=== PATIENT | male | born 1945 | race Caucasian/White ===

== ENCOUNTER → 2019-04-20 08:10 | Outpatient (BNVA) | payer MEDICARE, OTHER, SELFPAY | PROVIDERS: Family Provider Electrodiagnostic Medicine; PCP Internal Medicine; Visit Provider Urology | DX: R31.0 Gross hematuria (principal); N13.8 Other obstructive and reflux uropathy; N40.1 Benign prostatic hyperplasia with lower urinary tract symptoms; N41.1 Chronic prostatitis | CPT/HCPCS: 81001; 87086 ==

== ENCOUNTER → 2019-04-21 12:01 | Outpatient (BNVA) | payer MEDICARE, OTHER, SELFPAY | PROVIDERS: Family Provider Electrodiagnostic Medicine; PCP Internal Medicine; Visit Provider Urology | DX: R31.0 Gross hematuria (principal) | CPT/HCPCS: 88112 ==

== ENCOUNTER 2019-05-02 23:05 | Inpatient (IN) | payer MEDICARE, OTHER, SELFPAY ==
[2019-05-02 23:12] VITALS: BP 174/128; PULSE 61; RESP 16; TEMP 36.5; O2SAT 94
--- NOTE | 2019-05-02 23:20 | ED_ITS ---
Entered by Zeenat Rizzo, acting as scribe for Darell Patel DO May 02, 2019 23:05 HPI - Chest Pain General: Chief Complaint: Chest Pain Stated Complaint: throat and chest pain Time Seen by Provider: 05/02/19 23:14 Source: patient and family Mode of arrival: ambulatory History of Present Illness: HPI narrative: 73 y/o male presents to the ED with complaint of chest heaviness today. Pt states the pain radiates into his shoulder blades. He also reports some difficulty swallowing/throat discomfort. He has had some increased bloating. He had a similar episode yesterday. complaint: chest heaviness Onset (ago): day(s) Timing of current episode: episodic and still present Prior episodes: Yes Pain radiation: back Severity: mild Relieving factors: nothing Associated symptoms: Reports abdominal pain (bloating); Deny dyspnea, fever(s), nausea, palpitations or vomiting Review of Systems Const: Denies: fever or chills Eyes: Denies: change in vision or blurry vision ENMT: Denies: swelling of lips/tongue, bleeding gums, dental pain, Change in hearing, nose bleeds, post nasal drip or facial/sinus pain Card: Reports: chest pain; Denies: palpitations, irregular heart rhythm, edema or swelling of feet/ankles Resp: Denies: shortness of breath, productive cough, non-productive cough or wheezing GI: Reports: abdominal pain (bloating); Denies: nausea, vomiting, rectal pain, blood in stool or black tarry stool : Denies: difficulty urinating, painful urination, urinary frequency, urinary urgency or blood in urine Musc: Denies: neck pain, redness or joint warmth Skin/Breast: Denies: rash, itching or redness Neuro: Denies: headache, dizziness, vertigo, confusion or seizure-like activity Psych: Denies: anxiety, visual hallucinations or auditory hallucinations PFSH ED PFSH: Statuses (acute, chronic, etc) shown below reflect problem list status as previously entered and may not be historically accurate Medical History (Updated 05/03/19 @ 03:58 by Nori Park MD) BPH w urinary obs/LUTS (Acute) Chronic prostatitis (Acute) History of breast cancer (Acute) History of hiatal hernia (Acute) surgery Unstable angina (Acute) Surgical History History of back surgery (Acute) Status post bilateral inguinal hernia repair (Acute) Social History (Updated 05/03/19 @ 04:02 by Nori Park MD) Smoking and tobacco status: never smoked Alcohol intake: never Adopted: No Caregiver/support person: No Lives independently: No Household members: spouse Marital status: Current occupational status: retired 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 Physical Exam Const: GENERAL APPEARANCE: well developed ORIENTATION/CONSCIOUSNESS: Yes oriented to person, Yes oriented to place and Yes oriented to time HENMT: COMMON NORMALS: normocephalic, external ears normal and external nose normal HEAD & SCALP: normocephalic FACE & SINUS: normal facial exam NOS E: external nose normal and no nasal discharge EXTERNAL EAR: Yes external ears normal Eye: COMMON NORMALS: PERRL, EOMs intact bilaterally and conjunctivae normal EYELID: eyelids normal CONJUNCTIVA: Yes conjunctivae normal PUPIL: Yes PERRL Neck/C-Spine: COMMON NORMALS: full ROM GENERAL: No tracheal deviation Chest: COMMONS NORMALS: inspection of chest normal CHEST: No tenderness Resp: COMMON NORMALS: clear to auscultation bilaterally EFFORT & INSPECTION: No tachypneic, No respiratory distress, No retractions, No uses accessory muscles and No tracheal deviation AUSCULTATION: clear to auscultation bilaterally, no rhonchi, no wheezes and lung sounds not diminished Cardio: COMMON NORMALS: regular rate and regular rhythm RATE: regular rate RHYTHM: regular rhythm HEART SOUNDS: no murmurs PERIPHERAL PULSES: radial pulses present GI: COMMON NORMALS: soft to palpation INSPECTION: Yes abdominal distension AUSCULTATION: No hyperactive bowel sounds and No hypoactive bowel sounds PALPATION: Yes soft, No guarding and No rigid PERCUSSION: no dullness to percussion and no tympanic to percussion : COMMON NORMALS: Yes no CVA tenderness BLADDER/KIDNEY EXAM: Yes no CVA tenderness Back/Pelvis: COMMON NORMALS: no CVA tenderness Extremity: GENERAL: Yes edema (1+ bilaterally) Neuro: SENSORIUM/ORIENTATION: Yes oriented to person, Yes oriented to place and Yes oriented to time Psych: COMMON NORMALS: mental status grossly normal Skin: COMMON NORMALS: no rashes or lesions noted GENERAL SKIN EXAM: no rashes or lesions noted Course ED course: 73-year-old male with no prior coronary disease history. He presents with chest pain that radiates into his back and neck. He is hypertensive. Improvement in pain with nitroglycerin transiently, but the pain returned. His hypertension also returned. Nitropaste was placed on his chest, again with some improvement. His cardiac enzymes are negative x2 sets 2 hours apart. His EKGs do not show acute ST change, but they do show intraventricular conduction delay, with bradycardia. His chest x-ray is not remarkable. With continued pain, controlled with nitroglycerin, he will be observed, hopefully for stress later today. Spoke with hospitalist who agrees. Consultations: Consultation #1: britton Vital Signs: Vital signs: Vital Signs Temperature 97.7 F 05/02/19 23:12 Pulse Rate 85 05/03/19 03:27 Respiratory Rate 18 05/03/19 03:27 Blood Pressure 148/92 05/03/19 03:27 Pulse Oximetry 98 05/03/19 03:27 MDM - Chest Pain Lab Data: Labs: Lab Results 05/02/19 05/02/19 05/02/19 Range/Units 23:22 23:22 23:22 WBC 6.3 (4.0-10.0) 10^3/ uL RBC 5.02 (4.1-5.3) 10^6/u L Hgb 13.8 (11.7-16.6) g/dL Hct 42.8 (42.0-52.0) % MCV 85.3 (80-94) fL MCH 27.5 L (28.0-34.0) pg MCHC 32.2 (30.0-36.0) g/dL RDW 14.4 (12.1-15.1) % Plt Count 161 (130-400) 10^3/c mm MPV 11.7 H (7.4-10.4) fL Neut % (Auto) 55.1 % Lymph % (Auto) 31.3 % Hawkins % (Auto) 8.3 % Eos % (Auto) 4.5 % Baso % (Auto) 0.5 % Neut # (Auto) 3.5 (1.8-7.7) 10^3/u L Lymph # (Auto) 2.0 (0.8-4.8) 10^3/u L Hawkins # (Auto) 0.5 (0.2-0.9) 10^3/u L Eos # (Auto) 0.3 (0.0-0.8) 10^3/u L Baso # (Auto) 0.0 (0.0-0.1) 10^3/u L Nucleated RBC % (a uto) 0 % Nucleated RBCs # 0.0 /100WBC PT 13.50 H (10.5-13.3) SECO NDS INR 1.00 (0.8-1.2) APTT 32.6 (23.9-36.7) SECO NDS Sodium 137 (136-145) mmol/L Potassium 3.5 (3.5-5.1) mmol/L Chloride 99 (98-107) mmol/L Carbon Dioxide 25 (22-29) mmol/L Anion Gap 16.5 (5-19) BUN 17 (8-23) mg/dL Creatinine 1.6 H (0.7-1.2) mg/dL Glucose 110 H (74-106) mg/dL Calcium 9.8 (8.5-10.5) mg/dL Total Bilirubin 0.6 (0.15-1.2) mg/dL AST 19 (0-40) U/L ALT 25 (0-41) U/L Alkaline Phosphata se 65 (40-130) IU/L Creatine Kinase 128 (39-308) U/L Troponin T Baselin e (0-15) ng/mL Troponin T 120 Min [place] (0-15) ng/mL Delta Troponin T (0-10) ABS# NT-Pro-B Natriuret Pep 294 H (0-125) pg/mL Total Protein 7.3 (6.6-8.7) g/dL Albumin 4.5 (3.5-5.2) g/dL Globulin 2.8 (1.3-4.6) g/dL 05/02/19 05/03/19 Range/Units 23:22 01:41 WBC (4.0-10.0) 10^3/ uL RBC (4.1-5.3) 10^6/u L Hgb (11.7-16.6) g/dL Hct (42.0-52.0) % MCV (80-94) fL MCH (28.0-34.0) pg MCHC (30.0-36.0) g/dL RDW (12.1-15.1) % Plt Count (130-400) 10^3/c mm MPV (7.4-10.4) fL Neut % (Auto) % Lymph % (Auto) % Hawkins % (Auto) % Eos % (Auto) % Baso % (Auto) % Neut # (Auto) (1.8-7.7) 10^3/u L Lymph # (Auto) (0.8-4.8) 10^3/u L Hawkins # (Auto) (0.2-0.9) 10^3/u L Eos # (Auto) (0.0-0.8) 10^3/u L Baso # (Auto) (0.0-0.1) 10^3/u L Nucleated RBC % (a uto) % Nucleated RBCs # /100WBC PT (10.5-13.3) SECO NDS INR (0.8-1.2) APTT (23.9-36.7) SECO NDS Sodium (136-145) mmol/L Potassium (3.5-5.1) mmol/L Chloride (98-107) mmol/L Carbon Dioxide (22-29) mmol/L Anion Gap (5-19) BUN (8-23) mg/dL Creatinine (0.7-1.2) mg/dL Glucose (74-106) mg/dL Calcium (8.5-10.5) mg/dL Total Bilirubin (0.15-1.2) mg/dL AST (0-40) U/L ALT (0-41) U/L Alkaline Phosphata se (40-130) IU/L Creatine Kinase (39-308) U/L Troponin T Baselin e 28 H (0-15) ng/mL Troponin T 120 Min [place] 26.82 H (0-15) ng/mL Delta Troponin T -1.18 L (0-10) ABS# NT-Pro-B Natriuret Pep (0-125) pg/mL Total Protein (6.6-8.7) g/dL Albumin (3.5-5.2) g/dL Globulin (1.3-4.6) g/dL Discharge Plan Discharge Patient Disposition: Admitted As Inpatient Admit Provider: Nori Park Discharge Date/Time: 05/03/19 03:31 Coding Level of Care Code ED Mechanical Development Engineer for Malorie Fwsobeida The documentation recorded by the Matthias shane Ashley, accurately reflects the service I personally performed and the decisions made by Jorge almanza Jeremy John, DO May 02, 2019 23:05
--- NOTE | 2019-05-02 23:39 | XR_ITS ---
WS: [id number] CHEST XRAY TECHNIQUE: Portable chest. CLINICAL INFORMATION: cp COMPARISON: None. FINDINGS: Heart: Normal cardiac silhouette. Lungs: Lungs are clear. No consolidation or pleural effusion. Calcified granuloma right upper lobe pr eviously described on chest CT. Bones: Normal visualized bony structures. XR/XR chest 1V portable [id number] IMPRESSION: No acute chest findings
--- NOTE | 2019-05-02 23:39 | ECG_ITS ---
Measurements Intervals [place] Rate: 59 P: 26 ND: 149 QRS: -15 QRSD: 157 T: -23 QT: 453 QTc: 452 SINUS BRADYCARDIA INTRAVENTRICULAR CONDUCTION DELAY [130+ ms QRS DURATION] No previous ECG available for comparison Electronically Signed On 05-03-2019 20:56:43 LATHE PULLER by Dylan Zaman M.D. [id number]
[2019-05-02 23:48] LABS: Basophils % 0.5 %; Eosinophils # 0.3 10^3/uL (0.0-0.8); Eosinophils % 4.5 %; Hematocrit 42.8 % (42.0-52.0); Hemoglobin 13.8 g/dL (11.7-16.6); Lymphocytes % 31.3 %; Mean Corpuscular HGB Conc 32.2 g/dL (30.0-36.0); Mean Corpuscular Hemoglobin 27.5 pg (28.0-34.0); Mean Corpuscular Volume 85.3 fL (80-94); Mean Platelet Volume 11.7 fL (7.4-10.4); Monocytes # 0.5 10^3/uL (0.2-0.9); Monocytes % 8.3 %; Neutrophils # 3.5 10^3/uL (1.8-7.7); Neutrophils % 55.1 %; Nucleated Red Blood Cells % 0 %; Platelet Count 161 10^3/cmm (130-400); Red Blood Count 5.02 10^6/uL (4.1-5.3); Red Cell Distribution Width 14.4 % (12.1-15.1); White Blood Count 6.3 10^3/uL (4.0-10.0)
[2019-05-02 23:55] LABS: Partial Thromboplastin Time 32.6 SECONDS (23.9-36.7)
[2019-05-03] VITALS (9 sets, daily range): BP systolic 141–189; BP diastolic 59–99; PULSE 59–85; RESP 10–21; TEMP 36.5–37.1; O2SAT 90–98
[2019-05-03 00:02] LABS: Troponin(5th) Baseline 28 ng/mL (0-15)
[2019-05-03] MEDS: nitroglycerin 0.4 mg sublingual Tablet SUBLINGUAL (00:07)
[2019-05-03 00:10] LABS: Alanine Aminotransferase 25 U/L (0-41); Albumin Level 4.5 g/dL (3.5-5.2); Alkaline Phosphatase 65 IU/L (40-130); Anion Gap 16.5 (5-19); Aspartate Amino Transferase 19 U/L (0-40); Blood Urea Nitrogen 17 mg/dL (8-23); Calcium 9.8 mg/dL (8.5-10.5); Carbon Dioxide 25 mmol/L (22-29); Chloride 99 mmol/L (98-107); Creatine Phosphokinase 128 U/L (39-308); Globulin 2.8 g/dL (1.3-4.6); Glucose 110 mg/dL (74-106); NT Pro B Type Natriuretic Pept 294 pg/mL (0-125); Potassium 3.5 mmol/L (3.5-5.1); Sodium 137 mmol/L (136-145); Total Bilirubin 0.6 mg/dL (0.15-1.2); Total Protein 7.3 g/dL (6.6-8.7)
[2019-05-03 02:14] LABS: Troponin 5 2HR 26.82 ng/mL (0-15); Troponin 5 2HR Delta -1.18 ABS# (0-10)
[2019-05-03] MEDS: nitroglycerin 1 gm/inch oint Pkt 1.5 INCH TOPICAL (02:23)
--- NOTE | 2019-05-03 02:59 | P.HP_ITS ---
Providers/Chief Complaint Primary Care Provider: Carlitos Castro DO Chief Complaint: throat and chest pain History of Present Illness Sabas Feldman is a 73 year old male who carries a diagnosis of left breast cancer, BPH, prostatitis, hypertension who came in with chief complaint of chest discomfort. Patient is stating that for last 3 days he has been having chest discomfort which is substernal, it feels like heaviness to him, radiates towards his neck and shoulder bilaterally on mild activity, and last 72 hours it happened at rest as well while he was watching sports on television. Recent event was on Friday when he went out to walk, he also felt discomfort while he was in the yazidism. He has not noticed any nausea or vomiting but he stating that this chest discomfort is radiating towards his back as well. 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 He has not noticed any swelling of his lower extremities, cough, hemoptysis, weight loss, fever or chills. Patient is denying previous history of VT, coronary disease, CHF, stroke, d iabetes. He is not sure why he is on diltiazem for blood pressure along with hydrochlorothiazide. Diagnostics in ER showed normal hemodynamics, abnormal creatinine, troponins are not significantly high, EKG did not show any ischemic changes, incomplete right bundle branch block Hospital service was requested to admit for chest pain observation, when I saw him heart rate was 80 and was fluctuating [id number] Review of Systems Const: Denies: fever, chills or body aches Eyes: Denies: change in vision ENMT: Denies: throat pain Card: Reports: chest pain, shortness of breath on exertion and shortness of breath when lying down; Denies: palpitations or swelling of feet/ankles Resp: Denies: shortness of breath GI: Denies: abdominal pain, nausea or vomiting : Denies: flank pain Musc: Denies: neck pain or back pain Skin/Breast: Denies: rash Neuro: Denies: headache Psych: Denies: anxiety Endo: Denies: excessive urination Rudy/Lymph: Denies: easy bruising All/Imm: Denies: hives Medications/Allergies Allergies Allergy/AdvReac Type Severity Reaction Status Date / Time No Known Allergies Allergy Unverified 04/19/19 16:47 PFSH Acute PFSH: Statuses (acute, chronic, etc) shown below reflect problem list status as previously entered and may not be historically accurate Medical History (Updated 05/03/19 @ 03:58 by Nori Park MD) BPH w urinary obs/LUTS (Acute) Chronic prostatitis (Acute) History of breast cancer (Acute) History of hiatal hernia (Acute) surgery Unstable angina (Acute) Surgical History History of back surgery (Acute) Status post bilateral inguinal hernia repair (Acute) Social History (Updated 05/03/19 @ 04:02 by Nori Park MD) Smoking and tobacco status: never smoked Alcohol intake: never Adopted: No Caregiver/support person: No Lives independently: No Household members: spouse Marital status: Current occupational status: retired 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 Vitals/I&O/Wt Last Vital Signs Temp 97.7 F 05/02/19 23:12 Pulse 59 L 05/03/19 02:29 Resp 10 L 05/03/19 02:29 BP 189/95 05/03/19 02:29 Pulse Ox 95 05/03/19 02:29 Weight last 48 hrs Weight 117.934 kg Physical Exam Narrative: EXAM NARRATIVE: Well-hydrated well-nourished well-kempt appearance Not in any acute distress S1-S2 no active signs of heart murmur or heart failure Abdomen soft nontender nondistended bowel sounds present Neurologically nonfocal exam EOMI, PERRLA, Lower extremity does not show any sign ischemia gangrene ulcer Appropriate mood and affect Data : 05/02/19 23:22 05/02/19 23:22 A&P Assessment and plan (1) Chronic prostatitis: Status: Acute Code(s): N41.1 - Chronic prostatitis (2) Gross hematuria: Status: Acute Code(s): R31.0 - Gross hematuria (3) BPH w urinary obs/LUTS: Status: Acute Code(s): N40.1 - Benign prostatic hyperplasia with lower urinary tract symptoms; N13.8 - Other obstructive and reflux uropathy (4) Unstable angina: Status: Acute Code(s): I20.0 - Unstable angina Additional A&P Information Unstable angina Typical chest pain substernal, happening at rest and on mild exertion, radiating towards his neck, relieved with nitroglycerin, Risk factors include age, sex, hypertension, BMI We will check lipid panel, A1c EKG showing right bundle branch block without ischemic changes, troponins not significantly high, Considering considering moderate risk factors I would do Lexiscan stress test I would also like to rule out pulmonary embolism because of his long driving distance on a daily basis, I would give him Ativan before getting CTA chest because he is claustrophobic BPH: Continue tamsulosin and finasteride Prostatitis: He has to finish 6 weeks of Bactrim, he is in second week I would continue Bactrim antibiotic CHI: This most likely is pseudo-hyper creatininemia due to Bactrim use, monitor BMP, History of hiatal hernia status post surgery Hypertension: He takes diltiazem and hydrochlorothiazide, patient is not able to tell me a good reason why he is on diltiazem instead of other agents Full code DVT prophylaxis: Heparin Attestations Medical Necessity Statement*: Admit for chest pain rule out needs CTA chest and Lexiscan stress test, anticipating discharge in less than 48 hours if both tests are negative Time Spent in Patient Care: 50 Coding Level of Care Code Acute Logistics Account Manager for Malorie Fwd Diagnoses Chronic prostatitis N41.1 Gross hematuria R31.0 BPH w urinary obs/LUTS N40.1; N13.8 Unstable angina I20.0
--- NOTE | 2019-05-03 03:26 | CTR_ITS ---
PROCEDURE INFORMATION: Exam: CT Angiography Chest With Contrast Exam date and time: 05/03/2019 3:48 AM Age: 73 years old Clinical indication: Chest pain; Type not specified; Additional info: Pe TECHNIQUE: Imaging protocol: Computed tomographic angiography of the chest with intravenous contrast. 3D rendering: MIP and/or 3D reconstructed images were created by the technologist. Total DLP: 705.13 mGy-cm Radiation optimization: All CT scans at this facility use at least one of these dose optimization techniques: automated exposure control; mA and/or kV adjustment per patient size (includes targeted exams where dose is matched to clinical indication); or iterative reconstruction. Contrast material: VISI; Contrast volume: 95 ml; Contrast route: IV; COMPARISON: CT chest w con* [id number] 07/18/2017 11:10 AM FINDINGS: Pulmonary arteries: The pulmonary arteries are adequately opacified for evaluation to the subsegmental level. There is no filling defect to suggest embolism. Aorta: There is moderate aortic atherosclerotic disease. There is no aortic aneurysm. Lungs: Lungs are clear. Pleural space: Unremarkable. No pneumothorax. No pleural effusion. Heart: The heart is unremarkable. There is no pericardial effusion. There is mild coronary artery calcification. Mediastinum: There is a small sliding-type hiatal hernia. Gallbladder and bile ducts: The gallbladder is distended. There is a calcified intraluminal stone. The common bile duct is moderately dilated and there is biliary gas. Spleen: Splenic size is normal. There are scattered calcifications consistent with healed granulomas. Kidneys and ureters: There is a simple 5.4 cm right renal cyst. No follow-up imaging is necessary. Lymph nodes: There is no mediastinal or hilar lymphadenopathy. Bones/joints: Bones are unremarkable. Soft tissues: The extrathoracic soft tissues are unremarkable. CT/CT angio chest PE protcl [id number] IMPRESSION: 1. Cholelithiasis with a distended gallbladder. Possible cholecystitis. 2. No pulmonary embolism. 3. Biliary dilation and biliary gas. The duct is incompletely imaged. No calcified stones are seen in the visible portion of the lumen. Radiation Dose CTDIVOL = (mGy): DLP = 705.13 (mGy-cm)
--- NOTE | 2019-05-03 03:26 | NMCV_ITS ---
NM delicia perf SPECT r/s* [id number] Sabas Feldman Age: 73 Gender: M : 1945 Exam Date: 05/03/2019 06:18 Ordering Phys: Nori Park MD Technologist: DAV Guerrero Exam Location: [facility] Indications: Throat and chest pain STRESS TEST Please see separate stress test report in [facility] for full findings IMAGE PROTOCOL Rest/Stress 1 Lexiscan Day Radiopharmaceutical Dose (mCi) Administration Site Administered by Rest: Tc-99m 10.8 IV DAV Guerrero Sestamibi Stress:Tc-99m 32.0 IV DAV Guerrero Sestamibi Rest: 03-May-2019 60 Discovery 630 Stress: 03-May-2019 60 Discovery 630 0.4mg Lexiscan. Supine position only as patient was unable to lay prone. SPECT RESULTS Technical Quality: Good Raw Data Analysis: Normal Image Corrections: Partial motion corection applied to images due to breathing artifact Summed Stress Score: 4 Summed Rest Score: 11 Summed Difference Score: 0 PERFUSION FINDINGS Medium-sized area of fixed perfusion defect noted in the basal to distal inferior and inferolateral wall suggestive of old myocardial infarction versus scarring. FUNCTIONAL RESULTS (calculated via Gated SPECT) Stress Image LV EF (%): 36 Stress EDV (mL):120 TID: 0.95 Stress ESV (mL):77 Rest Image LV EF (%): 36 FUNCTIONAL FINDINGS: There appeared to be basal to distal inferior wall akinesis IMPRESSIONS Medium-sized area of old myocardial infarction versus scaring noted in basal to distal inferior and inferolateral wall without benjamin-infarct ischemia. This study is negative for ischemia. Please note that patient was not able to perform the prone images therefore cannot rule out artifact. Nori Polanco MD (Electronically Signed) Final Date: 03 May 2019 13:02 S
--- NOTE | 2019-05-03 03:26 | ECG_ITS ---
NAME OF STUDY: LEXISCAN SESTAMIBI STRESS TEST INDICATION: Chest Pain NOTE: Please note that this is the electrocardiogram portion of the Lexiscan/Sestamibi stress test. The perfusion scan will be documented separately. DATA: Baseline heart rate was 73 beats per minute. Baseline blood pressure was 143/93 millimeters of mercury. Target heart rate was 149. Maximum heart rate achieved was 117. which was 78 % of the predicted target heart rate. Maximum blood pressure was 145/93 millimeters of mercury. The reason for ending the test was completion of the protocol. The patient did not experience any symptoms. ELECTROCARDIOGRAM: BASELINE: Sinus rhythm. Normal axis. Right bundle branch block, otherwise no significant ST-T changes suggestive of ischemia noted. No arrhythmia noted. EXERCISE: After Lexiscan injection, no ST-T changes suggestive of ischemic noted. No arrhythmia noted. CONCLUSION: Please note due to baseline abnormality of the EKG specificity and sensitivity of the EKG portion of LexiScan MIBI stress test will be low 1. EKG not suggestive of ischemia 2. Lexiscan injection unremarkable. 3. Perfusion scan will be documented separately. Electronically Signed On 05-03-2019 19:00:12 SELECTOR PACKER by Nori Polanco M.D. [email or web address]
[2019-05-03] MEDS: LORazepam 2 mg/mL INJ 1 mL 1 MG IVP (03:47)
[2019-05-03] MEDS: iodixanol 320 mg/mL 100mL Btl IV (03:49)
[2019-05-03] MEDS: heparin 5,000 unit/mL INJ 1 mL 5000 UNIT SUBCUT ×3 (03:54→19:43)
[2019-05-03] MEDS: pantoprazole DR 40 mg Tablet PO ×3 (03:54→18:10)
--- NOTE | 2019-05-03 04:00 | PC.NURSE ---
Admitted to room 101 from ED via wheelchair with complaint of chest pain that started at approximately 10-11 last night. Pain radiates to neck causing throat to be sore. Skin warm and dry. Respirations even and unlabored. Patient tired from receiving Ativan in ED before CTA of chest secondary to claustrophobia. Patient has history of being lost in a cave;therefore, causing his claustrophobia. Patient also has history of left breast mastectomy with lymph node removal x3. No BP's or lab draws to be obtained using this arm. Oriented to room. Denies complaints at this time. Patient states, I will need something before they take me for those pictures or I'll freak out on them. Dr. Park notified. Dr. Park to put order in computer. Spouse at bedside. Will monitor.
--- NOTE | 2019-05-03 04:04 | USCV_ITS ---
Sabas Feldman Age: 73 Gender: M : 1945 Exam Date: 05/03/2019 10:43 Ordering Phys: Nori Park MD Technologist: Vidya Mosley [place] [facility] [place]ST [place]IN BP: 145 / 92 HR: 64 Rhythm: Sinus Technical Quality: Adequate MEASUREMENTS (Male / Female) Normal Values 2D ECHO LV Diastolic Diameter PLAX 4.8 cm 4.2 - 5.9 / 3.9 - 5.3 cm LV Systolic Diameter PLAX 3.8 cm LV Chamber Size 4.0 cm IVS Diastolic Thickness 1.6 cm 0.6 - 1.0 / 0.6 - 0.9 cm IVS Systolic Thickness 1.7 cm LVPW Diastolic Thickness 1.5 cm 0.6 - 1.0 / 0.6 - 0.9 cm LVPW Systolic Thickness 2.4 cm RV Chamber Size 2.9 cm LVOT Diameter 2.1 cm LV Ejection Fraction 2D Teich 44.4 % LV Ejection Fraction MOD 2C 42.6 % LV Ejection Fraction 2C AL 40.8 % LA Diameter 5.1 cm LA Width 3.4 cm LA Height 5.2 cm RA Width 2.1 cm RA Height 3.9 cm Aorta at Sinotubular Diameter 3.1 cm M-MODE LV Diastolic Diameter MM 6.2 cm 4.2 - 5.9 / 3.9 - 5.3 cm LV Systolic Diameter MM 4.1 cm LV Ejection Fraction MM Teich 61.3 % IVS Diastolic Thickness MM 1.3 cm 0.6 - 1.0 / 0.6 - 0.9 cm IVS Systolic Thickness MM 1.2 cm LVPW Diastolic Thickness MM 0.9 cm 0.6 - 1.0 / 0.6 - 0.9 cm LVPW Systolic Thickness MM 1.7 cm Aortic Annulus Diameter 3.8 cm LA Ao Ratio MM 1.3 MV E Point Septal Separation 1.3 cm DOPPLER AV Peak Velocity 123.0 cm/s LVOT Peak Velocity 98.0 cm/s AV Area Cont Eq vti 2.5 cm squared AV Area Cont Eq pk 2.7 cm squared MV Area PHT 3.4 cm squared Mitral E to A Ratio 0.5 MV E' Velocity 9.0 cm/s Mitral E to MV E' Ratio 6.6 Mitral E to LV E' Lateral Ratio 6.1 Mitral E to LV E' Septal Ratio 7.2 TR Peak Velocity 213.0 cm/s TR Peak Gradient 18.1 mmHg TV Peak E Velocity 50.0 cm/s Right Atrial Pressure 3.0 mmHg Pulmonary Artery Systolic Pressu 21.1 mmHg PV Peak Velocity 79.0 cm/s RV Acceleration Time 0.2 s RV Ejection Time 0.4 s RV AcT/ET 0.4 FINDINGS Left Ventricle Normal left ventricular cavity size. Normal left ventricular systolic function. No regional wall motion abnormalities. Left ventricular ejection fraction is estimated at 61 %. Moderate left ventricular hypertrophy of concentric type. Grade I/IV diastolic dysfunction (abnormal relaxation filling pattern), normal to mildly elevated filling pressures. Right Ventricle The right ventricle is normal in size and function. Right Atrium The right atrium is normal in size. Left Atrium The left atrium is normal in size. Mitral Valve Structurally normal mitral valve without significant stenosis or prolapse. There is no mitral regurgitation. Aortic Valve Moderate aortic valve calcification. Mild aortic valve leaflet restriction otherwise no significant stenosis., Mean gradient 2.2 mmHg, GERALDO 2.5 cm squared. Tricuspid Valve Structurally normal tricuspid valve without significant stenosis or regurgitation. Pulmonary artery systolic pressure is normal. Pulmonic Valve Structurally normal pulmonic valve without significant stenosis. There is no pulmonic regurgitation. Pericardium Normal pericardium without effusion. Aorta Normal ascending aorta dimension. CONCLUSIONS 1-Normal left ventricular cavity size. Normal left ventricular systolic function. No regional wall motion abnormalities. Left ventricular ejection fraction is estimated at 61 %. Moderate left ventricular hypertrophy of concentric type. Grade I/IV diastolic dysfunction (abnormal relaxation filling pattern), normal to mildly elevated filling pressures. 2-Moderate aortic valve calcification. Mild aortic valve leaflet restriction otherwise no significant stenosis., Mean gradient 2.2 mmHg, GERALDO 2.5 cm squared. 3-There is no pericardial effusion. 4-Pulmonary artery systolic pressure is within normal limits. 5-Right atrial pressure is around 5 mm of mercury. 6-There are no prior echocardiogram studies to compare. Nori Polanco MD (Electronically Signed) Final Date: 03 May 2019 15:53 S
[2019-05-03 04:40] LABS: Cholesterol 197 mg/dL (0-200); HDL Cholesterol 48 mg/dL (60-100); LDL Cholesterol Calculated 122 mg/dL (50-129); LDL HDL Ratio 2.54 RATIO (0.00-3.22); Thyroid Stimulating Hormone 4.77 uIU/mL (0.27-4.20); Triglycerides 135 mg/dL (0-150)
[2019-05-03 04:53] LABS: Estmated Average Glucose 114; Hemoglobin A1C 5.6 % (4.0-6.0)
[2019-05-03 04:58] LABS: D Dimer 0.39 ug/mIFEU (0-0.59)
--- NOTE | 2019-05-03 05:39 | ECG_ITS ---
Measurements Intervals [place] Rate: 78 P: 38 NM: 142 QRS: 2 QRSD: 146 T: -23 QT: 409 QTc: 468 SINUS RHYTHM INTRAVENTRICULAR CONDUCTION DELAY [130+ ms QRS DURATION] No previous ECG available for comparison Electronically Signed On 05-03-2019 21:06:17 ELECTRICAL MANUFACTURING TECHNICIAN by Dylan Zaman M.D. [email or web address]
--- NOTE | 2019-05-03 06:28 | PC.NURSE ---
Staff member from nuclear med at nurses' station and reports that patient stated that no matter what we give him for anxiety/claustrophobia, that he couldn't do the stress test. Staff states that patient said, it doesn't matter if they give me anything or not, I'll freak out if that machine touches me. Nuclear med staff walking patient down to see the machine before he is injected. Will monitor.
--- NOTE | 2019-05-03 06:31 | PC.NURSE ---
Dr. Park notified of previous notation.
[2019-05-03 06:34] LABS: Anion Gap 12.9 (5-19); Blood Urea Nitrogen 17 mg/dL (8-23); Calcium 9.8 mg/dL (8.5-10.5); Carbon Dioxide 25 mmol/L (22-29); Chloride 101 mmol/L (98-107); Glucose 120 mg/dL (74-106); Osmolality Calculated 278 mOsm/kg (285-295); Potassium 3.9 mmol/L (3.5-5.1); Sodium 135 mmol/L (136-145)
[2019-05-03 06:36] LABS: Troponin 5 6HR 29.82 ng/L (0-15); Troponin 5 6HR Delta 1.82 ng/L (0-12)
--- NOTE | 2019-05-03 06:48 | PC.NURSE ---
Dr. Park notified of patient asking for something for anxiety before going to [facility].Patient states that he is claustrophobic. Nuc med staff notified nurse that they will be back to lease picker patient for the scan at 0730. Dr. Park notified.
[2019-05-03] MEDS: LORazepam 1 mg Tablet PO (07:27)
--- NOTE | 2019-05-03 07:36 | PC.NURSE ---
To [facility]uc Med Fot stress test. Ushered Via wheelchair with staff.
--- NOTE | 2019-05-03 08:14 | SUR.PREOP ---
Patient reports no pain or discomfort prior to the start of the procedure.
[2019-05-03] MEDS: regadenoson 0.4 Mg/5 ml Syringe IVP (08:17)
--- NOTE | 2019-05-03 08:57 | US_ITS ---
WS: [id number] ULTRASOUND ABDOMEN LIMITED CLINICAL INFORMATION: Gallbladder US, abnormal CT COMPARISON: None. FINDINGS: Technically difficult examination due to inability to obtain adequate sonographic windows Liver Not well seen. Liver appears enlarged measuring 20.9 cm. COMMON BILE DUCT not seen Gallbladder Hydropic gallbladder. No visualized cholelithiasis. No gallbladder wall thickening. Pancreas Not well seen Right kidney: Normal. Hydronephrosis: None. Size: 13.3 cm x 5.0 cm x 5.6 cm. Abdominal aorta and IVC Visualized portions are normal. Ascites: None. US/US abdomen limited 13336 IMPRESSION: 1. Technically difficult study and limited examination. 2. Liver and common bile duct not well visualized. Liver appears enlarged. 3. Hydropic gallbladder. No visualized cholelithiasis. 4. No hydronephrosis in right kidney. 5. Pancreas is not well seen.
[2019-05-03] MEDS: finasteride 5 mg Tablet PO (10:21)
[2019-05-03] MEDS: tamsulosin 0.4 mg Capsule PO ×2 (10:21→18:10)
[2019-05-03] MEDS: sulfamethoxazole-trimeth DS 160-800 mg Tablet 1 TAB PO ×2 (10:21→18:10)
[2019-05-03] MEDS: hydroCHLOROthiazide 25 mg Tablet PO (10:21)
--- NOTE | 2019-05-03 11:41 | PC.CHAP ---
Pastoral Care Encounter/Spiritual Assessment Type of Contact [] Declined funeral service licensee visit [] Patient/Family/Request visit [] Outpatient visit [x] Follow-up visit [] Physician referral [] Code/Alert [] Routine visit [] Staff referral [] Actively dying [] Patient sleeping [] Family support [] [] Out of room [] Palliative care [] [] Receiving care in room [] Pre-surgical visit [] Trauma [] Long length of stay [] ICU visit [x] Other:Follow up visit still needed Relational/Emotional Strength [] Patient feels connected with others/family/visitors/staff [] Distress [] Loneliness/isolation [] Abandonment Spirituality of Patient [] Person of Viktoriya [] Attends Christianity of their Viktoriya [] Believes in Prayer [] Reads Bible or Confucianism materials [] There are Spiritual issues to be addressed Journeyman Level Acoustic Analyst Interventions [] Prayer [] Active listening [] Non-anxious presence [] Spiritual/emotional support [] Crisis/trauma care [] Spiritual counseling [] Bereavement support [] Provided bereavement packet [] Provided Bible/devotional materials [] Provided toy/stuffed animal, coloring book to patient or family member [] Provided Communion [] Anointing/[place] [] Salvation [] Completed spiritual assessment [] Other: Impact on Illness or Injury [] Angry [] Fearful [] Anxious [] Often cries [] Exhaustion [] Unable to work [] Unable to attend mandaeism [] Unable to walk/stand [] Unable to read [] Unable to drive [] Unable to eat/drink [] Unable to sleep [] Unable to be with family [] Patient intubated [] Other: Summary Pt had difficult night. present and up all night also. Both were very sound asleep and werfe not to be awakened Pt visited by Journeyman Level Acoustic Analyst Apple Carlos Time spent with patient 2 min.
[2019-05-03] MEDS: aspirin 325 mg Tablet PO (17:58)
[2019-05-03] MEDS: metoprolol tartrate 25 mg Tablet PO (18:09)
--- NOTE | 2019-05-03 18:55 | PM.PN ---
Subjective Subjective: Interval history: History and physical reviewed. Patient with some element of chest pain present for over 3 days. Still some in throat. Difficult to describe. Medications: Reviewed: Yes Vitals/I&O/Wt Last Vital Signs Temp 97.7 F 05/03/19 16:00 Pulse 74 05/03/19 16:00 Resp 21 H 05/03/19 16:00 BP 146/89 05/03/19 16:00 Pulse Ox 90 05/03/19 16:00 05/03/19 05/03/19 05/03/19 06:59 14:59 22:59 Intake Total 0 / 0 236 / 236 360 / 596 Output Total 550 / 550 Balance -550 / -550 236 / 236 360 / 596 Weight last 48 hrs Weight 117.934 kg Physical Exam Const: COMMON NORMALS: no apparent distress Resp: COMMON NORMALS: clear to auscultation bilaterally AUSCULTATION: clear to auscultation bilaterally Cardio: COMMON NORMALS: regular rate and regular rhythm RATE: regular rate RHYTHM: regular rhythm Extremity: COMMON NORMALS: normal to inspection and no clubbing, cyanosis or edema Data : 05/02/19 23:22 05/03/19 06:10 A&P Assessment and plan (1) Chronic prostatitis: Status: Acute Code(s): N41.1 - Chronic prostatitis (2) Gross hematuria: Status: Acute Code(s): R31.0 - Gross hematuria (3) BPH w urinary obs/LUTS: Status: Acute Code(s): N40.1 - Benign prostatic hyperplasia with lower urinary tract symptoms; N13.8 - Other obstructive and reflux uropathy (4) Unstable angina: No significant delta. Nuclear stess test shows possible previous ME inferior region. Echo preserved EF. Secondary to continued symptoms, cardiology consult. Statin, ASA, metoprolol. Status: Acute Code(s): I20.0 - Unstable angina Additional A&P Information Cholelithiasis on CT, liver enzymes normal. US unrevealing. HTN Stop Cardizem. Start Metoprolol History of hiatal hernia status post surgery Hypertension: He takes diltiazem and hydrochlorothiazide, patient is not able to tell me a good reason why he is on diltiazem instead of other agents Heparin for DVT prophylaxis. 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
--- NOTE | 2019-05-03 20:01 | P.CONIM_ITS ---
Providers/Reason For Consult Consulting Physican/Specialty*: Cardiology Reason for Consult*: Abnormal stress test Worsening of chest pain suspicious for unstable angina Uncontrolled hypertension Attending Physician: Tomer Pineda MD Primary Care Provider: Carlitos Castro DO History of Present Illness History of Present Illness Sabas Feldman is a 73 year old male Past medical history significant for [id number] of tobacco abuse quit few years ago, history of smokeless tobacco use quit couple of weeks ago , history of hypertension, Chronic prostatitis on antibiotics was admitted with worsening of chest pain radiating to neck jaw and both arms along with shortness of breath going on for the last 3 days. He admits to chest pain at rest as well. According to the patient for the past many week he has been noticing worsening of shortness of breath and chest pressure upon mild inclination he did not pay much attention to it until yesterday his chest pressure become more constant therefore he decided to come to ER. He was ruled out for acute coronary syndrome. 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 Since patient continues to have chest pressure we have been asked to come and see him. During my interview with the patient he sure he does appear to be moderate to high risk for acute coronary syndrome with possible worsening of angina. It was also noted that patient had acute renal failure which he is not aware of before coming to the hospital. On medicine colleagues thought it was secondary to his prostatitis/subacromial induced. Creatinine has started stabilizing and improved from 1.6-1.4. He admits to occasional hematuria. He denies otherwise per rectum or significant bleeding from any other source. Review of Systems Const: Denies: fever, chills or body aches Eyes: Denies: change in vision or blurry vision ENMT: Denies: throat pain, swelling of lips/tongue, bleeding gums, dental pain, change in hearing, nose bleeds, post nasal drip or facial/sinus pain Card: Reports: chest pain, shortness of breath on exertion and shortness of breath when lying down; Denies: palpitations, irregular heart rhythm, edema or swelling of feet/ankles Resp: Denies: shortness of breath, productive cough, non-productive cough or wheezing GI: Denies: abdominal pain, nausea, vomiting, rectal pain, blood in stool or black tarry stool : Denies: flank pain, difficulty urinating, painful urination, urinary frequency, urinary urgency or blood in urine Musc: Denies: neck pain, back pain, redness or joint warmth Skin/Breast: Denies: rash, itching or redness Neuro: Denies: headache, dizziness, vertigo, confusion or seizure-like activity Psych: Denies: anxiety, visual hallucinations or auditory hallucinations Endo: Denies: excessive urination Rudy/Lymph: Denies: easy bruising All/Imm: Denies: hives Meds/Allergies Home Medications and Allergies Home Medications Medication Instructions Recorded Confirmed Type finasteride 5 mg tablet 5 mg PO BEDTIME 04/19/19 05/03/19 History pantoprazole 40 mg tablet,delayed 40 mg PO QDAY 04/19/19 05/03/19 History release diltiazem HCl 240 mg capsule,24 240 mg PO DAILY cap 04/20/19 05/03/19 History hr,extended release hydrochlorothiazide 25 mg tablet 25 mg PO QDAY tab 04/20/19 05/03/19 History tamsulosin 0.4 mg capsule 0.8 mg PO BEDTIME cap 04/20/19 05/03/19 History Allergies Allergy/AdvReac Type Severity Reaction Status Date / Time No Known Allergies Allergy Unverified 04/19/19 16:47 Current Medications Current Medications Generic Name Dose Route Start Last Admin Trade Name Freq PRN Reason Stop Dose Admin Aspirin 325 mg 05/03/19 16:15 05/03/19 17:58 Aspirin PO 325 mg DAILY KATE Administration Finasteride 5 mg 05/03/19 09:00 05/03/19 10:21 Proscar PO 5 mg DAILY KATE Administration Heparin Sodium (Beef Lung) 5,000 unit 05/03/19 03:26 05/03/19 19:43 Heparin SUBCUT 5,000 unit Q8H KATE Administration Hydrochlorothiazide 25 mg 05/03/19 09:00 05/03/19 10:21 Hctz PO 25 mg DAILY KATE Administration Metoprolol Tartrate 25 mg 05/03/19 18:00 05/03/19 18:09 Lopressor PO 25 mg BID KATE Administration Pantoprazole Sodium 40 mg 05/03/19 18:00 05/03/19 18:10 Protonix PO 40 mg BID KATE Administration Tamsulosin HCl 0.4 mg 05/03/19 09:00 05/03/19 18:10 Flomax PO 0.4 mg BID KATE Administration Trimethoprim/Sulfamethoxazole 1 tab 05/03/19 09:00 05/03/19 18:10 Bactrim Ds PO 1 tab BID KATE Administration Protocol PFSH Acute PFSH: Statuses (acute, chronic, etc) shown below reflect problem list status as previously entered and may not be historically accurate Family History Father , AT AGE 66,BRAIN CANCER,COLON CANCER Cancer Mother , AT AGE 75, UNKNOWN CAUSE OF No problems noted. 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 NECK: No jugular vein distension. HEENT: No cyanosis. No icterus. No pallor. HEART: Regular S1 and S2. No murmur, rub or gallop. LUNGS: Clear to auscultate bilaterally. ABDOMEN: Soft, nontender and nondistended. Positive bowel sounds. No guarding, rebound or tenderness. CENTRAL NERVOUS SYSTEM: Grossly nonfocal. EXTREMITIES: Lower extremities without edema bilaterally. Data Labs: Other Labs: Sinus rhythm with right bundle branch block A&P Assessment and plan (1) Chest pain: The patient is moderate to high risk for obstructive coronary artery disease. He has history of chronic tobacco/smokeless abuse. His worsening of shortness of breath along with chest pain radiating to neck and both arm is suggestive of worsening of angina. We recommend proceeding with coronary angiogram. I will hydrate the patient once creatinine will be at normal level we will proceed with it. Patient also gave me history of hematuria. We will discuss it with Dr. Bourgeois and Dr. Pineda in regards to use of Plavix if indicated with stents. Patient and his by bedside has been discussed In detail with the plan and alternative. He would like to proceed with it. Status: Acute Qualifiers: Chest pain type: precordial pain Qualified Code(s): R07.2 - Precordial pain Code(s): R07.9 - Chest pain, unspecified (2) Acute renal failure (ARF): Most likely due to antibiotic induced/Septran aspirin medicine.IV fluids will be started for gentle hydration. Status: Acute Qualifiers: Acute renal failure type: unspecified Qualified Code(s): N17.9 - Acute kidney failure, unspecified Code(s): N17.9 - Acute kidney failure, unspecified (3) Hypertension: We'll switch patient from Cardizem to amlodipine. Isosorbide mononitrate will be added. Patient has already been started on metoprolol by Dr. Pineda. We'll continue to titrate medicine to bring his blood pressure below 130/80. Status: Acute Qualifiers: Hypertension type: essential hypertension Qualified Code(s): I10 - Essential (primary) hypertension Code(s): I10 - Essential (primary) hypertension Consult Attestations Medical Necessity Statement: Patient requires continuation hospitalization for above definedCare. 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
[2019-05-03] MEDS: sodium chloride 0.9% 1,000 ML 100 ML IV (20:31)
[2019-05-03] MEDS: temazepam 15 mg Capsule PO (20:33)
[2019-05-03] MEDS: atorvastatin 40 mg Tablet PO (20:34)
[2019-05-03] MEDS: isosorbide mononitrate ER 30 mg Tablet PO (20:34)
[2019-05-03] MEDS: amlodipine 5 mg Tablet PO (20:35)
[2019-05-04] MEDS: heparin 5,000 unit/mL INJ 1 mL 5000 UNIT SUBCUT ×3 (03:04→19:05)
[2019-05-04 04:00] VITALS: BP 114/54; PULSE 70; RESP 18; TEMP 36.8; O2SAT 92
[2019-05-04] MEDS: sodium chloride 0.9% 1,000 ML 100 ML IV ×2 (05:14→17:29)
[2019-05-04 07:35] VITALS: BP 112/85; PULSE 62; RESP 15; TEMP 36.4; O2SAT 97
[2019-05-04 08:33] LABS: Anion Gap 16.1 (5-19); Blood Urea Nitrogen 19 mg/dL (8-23); Calcium 9.7 mg/dL (8.5-10.5); Carbon Dioxide 24 mmol/L (22-29); Chloride 102 mmol/L (98-107); Glucose 106 mg/dL (74-106); Osmolality Calculated 283 mOsm/kg (285-295); Potassium 4.1 mmol/L (3.5-5.1); Sodium 138 mmol/L (136-145)
[2019-05-04] MEDS: tamsulosin 0.4 mg Capsule PO ×2 (08:47→17:29)
[2019-05-04] MEDS: aspirin 325 mg Tablet PO (08:47)
[2019-05-04] MEDS: pantoprazole DR 40 mg Tablet PO ×2 (08:47→17:29)
[2019-05-04] MEDS: metoprolol tartrate 25 mg Tablet PO ×2 (08:48→17:30)
[2019-05-04] MEDS: amlodipine 5 mg Tablet PO (08:48)
[2019-05-04] MEDS: isosorbide mononitrate ER 30 mg Tablet PO (08:48)
[2019-05-04] MEDS: finasteride 5 mg Tablet PO (08:48)
[2019-05-04] MEDS: hydroCHLOROthiazide 25 mg Tablet PO (08:49)
[2019-05-04 11:15] VITALS: BP 140/73; PULSE 67; RESP 18; TEMP 36.7; O2SAT 97
--- NOTE | 2019-05-04 11:15 | P.PN_ITS ---
Subjective Subjective: Interval history: Sabas reports he is doing okay. His neck discomfort is better. No chest discomfort overnight. Medications: Reviewed: Yes Vitals/I&O/Wt Last Vital Signs Temp 97.6 F 05/04/19 07:35 Pulse 62 05/04/19 07:35 Resp 15 05/04/19 07:35 BP 112/85 05/04/19 07:35 Pulse Ox 97 05/04/19 07:35 05/03/19 05/04/19 05/04/19 22:59 06:59 14:59 Intake Total 480 / 716 1471.667 / 2187.667 Balance 480 / 716 1471.667 / 2187.667 Weight last 48 hrs Weight 117.934 kg Physical Exam Const: COMMON NORMALS: no apparent distress Resp: COMMON NORMALS: clear to auscultation bilaterally AUSCULTATION: clear to auscultation bilaterally Cardio: COMMON NORMALS: regular rate and regular rhythm RATE: regular rate RHYTHM: regular rhythm Extremity: COMMON NORMALS: normal to inspection and no clubbing, cyanosis or edema Data : 05/02/19 23:22 05/04/19 07:44 A&P Assessment and plan (1) Chronic prostatitis: Holding Bactrim secondary to elevated creatinine Status: Acute Code(s): N41.1 - Chronic prostatitis (2) Gross hematuria: None present currently Status: Acute Code(s): R31.0 - Gross hematuria (3) BPH w urinary obs/LUTS: Status: Acute Code(s): N40.1 - Benign prostatic hyperplasia with lower urinary tract symptoms; N13.8 - Other obstructive and reflux uropathy (4) Unstable angina: No significant delta. Nuclear stess test shows possible previous [place] inferior region. Echo preserved EF. Secondary to continued symptoms, cardiology consult. Cardiology believes that angiogram is indicated. This will be coordinated over the next 1 to 2 days depending upon renal function. Statin, ASA, metoprolol, nitrates. Status: Acute Code(s): I20.0 - Unstable angina Additional A&P Information Cholelithiasis on CT, liver enzymes normal. US unrevealing. HTN Stop Cardizem. Start Metoprolol. Nitrate started as well. Blood pressure much improved. History of hiatal hernia status post surgery Hypertension: He takes diltiazem and hydrochlorothiazide, patient is not able to tell me a good reason why he is on diltiazem instead of other agents. Hold HCTZ secondary to elevated crerat. Heparin for DVT prophylaxis. Attestations Medical Necessity Statement*: Needs continued hospital stay for definitive evaluation of unstable angina with angiogram. Coding Level of Care Code Acute Retina Subspecialist for [facility] Fwd Diagnoses Chronic prostatitis N41.1 Gross hematuria R31.0 BPH w urinary obs/LUTS N40.1; N13.8 Unstable angina I20.0
[2019-05-04 15:06] VITALS: BP 157/87; PULSE 71; RESP 18; TEMP 36.7; O2SAT 95
[2019-05-04 18:24] LABS: Add Urine Culture? No; Bacteria Urine TRACE; Bilirubin Urine Neg (NEGATIVE); Blood Urine Neg (Negative); Glucose Urine UA Norm (Normal); Ketones Urine Negative (Negative); Leukocyte Esterase Urine Negative (Negative); Nitrate Urine Negative (Negative); Protein Urine Neg (Negative); Specific Gravity, Urine 1.005 (1.005-1.030); Urine Appearance Clear (CLEAR); Urine Color Straw (Yellow); Urobilinogen Urine Norm (Negative); pH Urine 5 (5-7)
[2019-05-04 18:56] VITALS: BP 156/87; PULSE 67; RESP 20; TEMP 36.9; O2SAT 93
--- NOTE | 2019-05-04 19:18 | PM.PN ---
Subjective Subjective: Interval history: Blood pressure is under control non-denies any chest pain had a good night sleep. Creatinine is around 1.5 Medications: Reviewed: Yes Vitals/I&O/Wt Last Vital Signs Temp 98.4 F 05/04/19 18:56 Pulse 67 05/04/19 18:56 Resp 20 H 05/04/19 18:56 BP 156/87 05/04/19 18:56 Pulse Ox 93 05/04/19 18:56 05/04/19 05/04/19 05/04/19 06:59 14:59 22:59 Intake Total 1471.667 / 2187.667 240 / 240 1240 / 1480 Output Total 600 / 600 Balance 1471.667 / 2187.667 240 / 240 640 / 880 Weight last 48 hrs Weight 260 lb Physical Exam Narrative: EXAM NARRATIVE: GENERAL: Patient is alert, awake and oriented x3. NECK: No jugular vein distension. HEENT: No cyanosis. No icterus. No pallor. HEART: Regular S1 and S2. No murmur, rub or gallop. LUNGS: Clear to auscultate bilaterally. ABDOMEN: Soft, nontender and nondistended. Positive bowel sounds. No guarding, rebound or tenderness. CENTRAL NERVOUS SYSTEM: Grossly nonfocal. EXTREMITIES: Lower extremities without edema bilaterally. Data : 05/02/19 23:22 05/04/19 07:44 A&P Assessment and plan (1) Chest pain: Patient chest pressure has improved. Blood pressure is also better. I will continue IV fluid. We will reassess creatinine the morning if near to normal around 1.2 we will proceed with angiogram continue medical management Status: Acute Qualifiers: Chest pain type: precordial pain Qualified Code(s): R07.2 - Precordial pain Code(s): R07.9 - Chest pain, unspecified (2) Acute renal failure (ARF): Most likely due to antibiotic induced/Septran aspirin medicine.Continue IV fluid Status: Acute Qualifiers: Acute renal failure type: unspecified Qualified Code(s): N17.9 - Acute kidney failure, unspecified Code(s): N17.9 - Acute kidney failure, unspecified (3) Hypertension: Now blood pressure is optimally controlled continue current regimen Status: Acute Qualifiers: Hypertension type: essential hypertension Qualified Code(s): I10 - Essential (primary) hypertension Code(s): I10 - Essential (primary) hypertension Attestations Medical Necessity Statement*: Requires continuation hospitalization for above defined problem for Coding Level of Care Code Established Pt Acute Online Communications Manager for [facility] Fwd Patient Type Established History Expanded Problem Focused Exam Expanded Problem Focused Medical Decision Making Moderate Complexity Diagnoses Chest pain R07.2 Chest pain type: precordial pain Acute renal failure (ARF) N17.9 Acute renal failure type: unspecified Hypertension I10 Hypertension type: essential hypertension
[2019-05-04] MEDS: atorvastatin 40 mg Tablet PO (20:50)
[2019-05-04 23:34] VITALS: BP 154/89; PULSE 66; RESP 18; TEMP 36.8; O2SAT 93
[2019-05-05] VITALS (73 sets, daily range): BP systolic 131–196; BP diastolic 61–103; PULSE 53–91; RESP 10–25; TEMP 36.6–36.9; O2SAT 88–98
[2019-05-05] MEDS: sodium chloride 0.9% 1,000 ML 100 ML IV ×2 (02:59→15:38)
[2019-05-05] MEDS: heparin 5,000 unit/mL INJ 1 mL 5000 UNIT SUBCUT (03:00)
[2019-05-05 04:29] LABS: Basophils % 0.5 %; Eosinophils # 0.3 10^3/uL (0.0-0.8); Eosinophils % 4.5 %; Hematocrit 40.2 % (42.0-52.0); Hemoglobin 12.7 g/dL (11.7-16.6); Lymphocytes # 1.8 10^3/uL (0.8-4.8); Lymphocytes % 29.5 %; Mean Corpuscular HGB Conc 31.6 g/dL (30.0-36.0); Mean Corpuscular Hemoglobin 26.5 pg (28.0-34.0); Mean Corpuscular Volume 83.8 fL (80-94); Mean Platelet Volume 12.5 fL (7.4-10.4); Monocytes # 0.8 10^3/uL (0.2-0.9); Monocytes % 12.7 %; Neutrophils # 3.2 10^3/uL (1.8-7.7); Neutrophils % 52.5 %; Nucleated Red Blood Cells % 0 %; Platelet Count 145 10^3/cmm (130-400); Red Cell Distribution Width 14.4 % (12.1-15.1); White Blood Count 6.1 10^3/uL (4.0-10.0)
[2019-05-05 05:00] LABS: Blood Urea Nitrogen 19 mg/dL (8-23); Calcium 9.6 mg/dL (8.5-10.5); Carbon Dioxide 26 mmol/L (22-29); Chloride 103 mmol/L (98-107); Glucose 113 mg/dL (65-115); Osmolality Calculated 285 mOsm/kg (285-295); Sodium 139 mmol/L (136-145)
[2019-05-05] MEDS: pantoprazole DR 40 mg Tablet PO ×2 (08:29→17:52)
[2019-05-05] MEDS: aspirin 325 mg Tablet PO (08:29)
[2019-05-05] MEDS: tamsulosin 0.4 mg Capsule PO ×2 (08:29→17:52)
[2019-05-05] MEDS: metoprolol tartrate 25 mg Tablet PO ×2 (08:29→17:52)
[2019-05-05] MEDS: isosorbide mononitrate ER 30 mg Tablet PO (08:29)
[2019-05-05] MEDS: amlodipine 5 mg Tablet PO (08:30)
[2019-05-05] MEDS: finasteride 5 mg Tablet PO (08:30)
--- NOTE | 2019-05-05 10:20 | XACV_ITS ---
Exam Room: [facility] Ht: 198 cm Wt: 118 kg BSA: 2.57 m2 Gender: Male : 1945 Any Known Allergies: No known allergies Exam Priority: Routine Procedure(s): Procedure Description: Diagnostic procedure Procedure Description: PCI procedure Procedure Description: Drug Eluting Coronary Stent Procedure Description: PTCA Procedure Description: Coronary Angiography Diagnostic Cath Status: Urgent Diagnostic Findings LM has 0% stenosis. mLAD: Mild 40% stenosis, REAL: 3 flow. mCIRC: Moderate 50% stenosis, REAL: 3 flow. Mid Right Coronary Artery to dRCA: Severe 99% stenosis, REAL: 2 flow. Coronary angiography shows right dominance. PCI Status: Urgent PCI Indication: NSTE - ACS Interventional Findings Mid Right Coronary Artery to dRCA: 99% stenosis treated with AB TREK 2.50X15 RX BALLOON and MDT R FRANK 3.5X18 GUICHO. 0% residual stenosis, REAL: 3 flow. Conclusions There is severe coronary artery disease with three vessel disease. Mid Right Coronary Artery to dRCA was treated with Balloon and Drug Eluting Stent. Recommendations 1-Return to inpatient for close monitoring and routine cath care2-Risk factor modification for secondary prevention3-Statin and aspirin 81 mg life-long, if tolerated4-Patient was pre-loaded with 600 mg of Plavix, continue Plavix 75mg p.o. daily for at least one year. We will assess at the end of one year again to continue if further or not5-Continue optimal medical management6-Follow up with Dr. Polanco in four weeks and your primary care in 10 days. Interventional RX Recommendation: PCI w/o planned CABG Diagnostic RX Recommendation: PCI w/o planned CABG Clinical Evaluation EBL: 5mL-10mL Procedural Details Cardiovascular Instability: No. Due to computer error, some notes may be out of sequence. AP pads placed on patient at 1622. Procedure Consent Obtained. Pre-Procedure Time Out. Identified patient by full name and date of as verbalized by the patient/guarantor. Does the consent match the physician's order: Yes. Accurate & Complete Informed Consent: Yes. Inpatient/Outpatient History & Physical on Chart: Yes. If H&P is completed, is and addenduem needed: No; If yes, is the addendum complete: N/A. Visualize and Verify Site with Patient/Guarantor: N/A. Relevant Radiology Images available: N/A. Pre-op teaching completed and patient verbalized understanding. The risks, benefits, and alternatives of sedation and/or procedure were discussed by physician. The patient agrees to continue. Procedure started. Correct patient, site and procedure confirmed by cath team. PERRLA. Strong, equal hand dextrine mixer bilaterally. Lungs clear x 5 lobes. IV Site on Arrival: 20 gauge in the right anticubital. IV Fluids: 0.9% NaCl at KVO. 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 Oxygen started at 2liters/min via nasal canula. Pre Procedural Pulses: bilateral dorsalis pedis was 2+. Pre Procedural Pulses: bilateral posterior tibial was 2+. bilateral groins was prepped with chloroprep then draped in the usual sterile fashion. right radial was prepped with chloroprep then draped in the usual sterile fashion. Physician notified. Baseline sample Acquired. HR: 61 BPM. Physician arrived. Equipment: 6F - Radial. Cardiac Cath Pack. ACIST Manifold Kit Model BT 2000. Heparinized Saline (2 units/mL), 1000 mL bag. [facility] Clinical Fraility Score: 3: Managing Well. Plumbing And Heating Mechanic Indications: New Onset Angina. Chest Pain Symptom Assessment: Typical Angina Symptoms. Plumbing And Heating Mechanic Indications: Worsening Angina. Physician scrubbed in. Immediate Pre-Procedure Time Out. Correct Patient: Yes; Correct Procedure: Yes; Correct Site: Yes; Correct Patient Position: Yes; Correct Supplies: Yes; Dried Flammable Prep: Yes; Blood Products Available: N/A;. Lidocaine 1% infiltrated to the right radial. Arterial access obtained. A 5 ku[place] TIG catheter in over wire. Juice Kinsey RRT was relieved by RIMMA Bartlett as monitoring person. Multiple views taken of right coronary artery. Catheter removed over the exchange wire. A 5 [place] JL4 Hu catheter in over wire. Multiple views taken of left coronary artery. Catheter out. 6 [place]i AL I guide catheter was inserted over the wire. [place] guidewire was advanced through the guide catheter to lesion in the mid RCA. Inflation number : 1 A AB TREK 2.50X15 RX BALLOON was prepped and advanced across the Mid RCA , then inflated to 16 VINICIO for 0:19 seconds. Balloon out. Inflation Number : 2 A SAVANAH Wick FRANK 3.5X18 GUICHO -Lot Number# [id number] was prepped and advanced across the Mid RCA. The stent was deployed at 18 VINICIO for 0:21 seconds. Stent expiration date: 01/03/2021. Stent balloon out over wire. Wire out. ACT drawn. Results 201 seconds. Therapeutic limits - pre-heparin administration 90-150 seconds and monitoring heparin during a vascular procedure >250 seconds. TR band placed. Hemostasis obtained. A TR Band was successful obtaining hemostatsis at the Right Radial artery insertion site. Post Procedure: Pulses reassessed and unchanged. PERRLA. Strong, equal hand dextrine mixer bilaterally. No VTE prophylaxis required. Total IV fluids: 53 mL. Contrast type used: Visipaque 320 mgI/mL, 500 mL bottle. Post-op diagnosis: Multivessel CAD. Complications: None. Estimated blood loss: 5mL-10mL. Medication's Wasted: Lidocaine 1% = 18 mL. Medication's Wasted: Nitro = 49.8 mg. Medication's Wasted: Heparin = 3000 units. Medication's Wasted: Other = Versed 1 mg. Medication's Wasted: Other = Fentanyl 50mcg. PCI Indication: New Onset Angina. Vital chart was stopped. Procedure completed. Patient transferred by bed to 1st floor. Site: Right Radial artery Sheath Size: 6 Fr Hemostasis Method: TR Band Hemostasis Success: Successful Procedure Medications Start: 4:03 PM Stop: 4:03 PM Medication: Versed Amount: 1 mg Route: I.V. Start: 4:03 PM Stop: 4:03 PM Medication: Fentanyl Amount: 50 mcg Route: I.V. Start: 4:05 PM Stop: 4:05 PM Medication: Versed Amount: 1 mg Route: I.V. Start: 4:08 PM Stop: 4:08 PM Medication: Nitrogylcerin Amount: 200 mcg Route: I.A. Start: 4:10 PM Stop: 4:10 PM Medication: Heparin Amount: 5000 units Route: I.V. Start: 4:22 PM Stop: 4:22 PM Medication: Heparin Amount: 3000 units Route: I.V. Start: 4:24 PM Stop: 4:24 PM Medication: Versed Amount: 1 mg Route: I.V. Start: 4:30 PM Stop: 4:30 PM Medication: Aggrastat 12.5 mg/250 mL Amount: 60 ml Route: I.V. bolus Start: 4:33 PM Stop: 4:33 PM Medication: Aggrastat 12.5 mg/250 mL Amount: 21.6 ml/hr Route: I.VKanu hernandez I, the attending physician, have reviewed and verified all procedure medications. Yes, all medications given per verbal order History/Risk Factors Hypertension: Yes Dyslipidemia: No Peripheral Arterial Disease (PAD): No Myocardial Infarction (KS): No Obesity: No Renal Disease: No Tobacco Use: Former Prior Interventions PCI: No CABG: No Valve Surgery: No Report Signatures Finalized by:Nori Polanco MD on 05/19/2019 9:28:48 PM
--- NOTE | 2019-05-05 10:43 | PC.CHAP ---
Pastoral Care Encounter/Spiritual Assessment Type of Contact [] Declined manager private visit [] Patient/Family/Request visit [] Outpatient visit [] Follow-up visit [] Physician referral [] Code/Alert [x] Routine visit [] Staff referral [] Actively dying [] Patient sleeping [] Family support [] [] Out of room [] Palliative care [] [] Receiving care in room [] Pre-surgical visit [] Trauma [] Long length of stay [] ICU visit [] Other: Relational/Emotional Strength [x] Patient feels connected with others/family/visitors/staff [] Distress [] Loneliness/isolation [] Abandonment Spirituality of Patient [x Person of Viktoriya [x] Attends Buddhism of their Viktoriya [x] Believes in Prayer [x] Reads Bible or Gnosticism materials [] There are Spiritual issues to be addressed Net Application Architect Interventions [x] Prayer [x] Active listening [] Non-anxious presence [] Spiritual/emotional support [] Crisis/trauma care [] Spiritual counseling [] Bereavement support [] Provided bereavement packet [] Provided Bible/devotional materials [] Provided toy/stuffed animal, coloring book to patient or family member [] Provided Communion [] Anointing/[place] [] Salvation [x] Completed spiritual assessment [] Other: Impact on Illness or Injury [] Angry [] Fearful [] Anxious [] Often cries [] Exhaustion [] Unable to work [] Unable to attend baptist [] Unable to walk/stand [] Unable to read [] Unable to drive [] Unable to eat/drink [] Unable to sleep [] Unable to be with family [] Patient intubated [] Other: Summary Patient and present. Waiting for more information. Confident all will be taken care of. Time spent with patient 20 min
--- NOTE | 2019-05-05 12:45 | PC.NURSE ---
Contacted Dr. Polanco about heparin dose due now order obtained to hold this dose
--- NOTE | 2019-05-05 12:49 | P.PN_ITS ---
Subjective Subjective: Interval history: Sabas reports he is doing okay. No chest pain currently. No neck pain currently. Reports he had some vague discomfort last night. Medications: Reviewed: Yes Vitals/I&O/Wt Last Vital Signs Temp 98.0 F 05/05/19 10:56 Pulse 65 05/05/19 10:56 Resp 18 05/05/19 10:56 BP 141/81 05/05/19 10:56 Pulse Ox 96 05/05/19 10:56 05/04/19 05/05/19 05/05/19 22:59 06:59 14:59 Intake Total 1360 / 1600 950 / 2550 240 / 240 Output Total 600 / 600 Balance 760 / 1000 950 / 1950 240 / 240 Physical Exam Narrative: EXAM NARRATIVE: General exam is no apparent distress Cardiovascular regular rate and rhythm without murmur Lungs clear Abdomen is soft, positive bowel sounds Extremities no cyanosis clubbing or edema Data : 05/05/19 03:00 05/05/19 03:00 A&P Assessment and plan (1) Chronic prostatitis: Holding Bactrim secondary to elevated creatinine. This can be resumed at some point following his angiogram. Status: Acute Code(s): N41.1 - Chronic prostatitis (2) Gross hematuria: None present currently Status: Acute Code(s): R31.0 - Gross hematuria (3) BPH w urinary obs/LUTS: Status: Acute Code(s): N40.1 - Benign prostatic hyperplasia with lower urinary tract symptoms; N13.8 - Other obstructive and reflux uropathy (4) Unstable angina: No significant delta. Nuclear stess test shows possible previous NC infer ior region. Echo preserved EF. Secondary to continued symptoms, cardiology consult. Cardiology believes that angiogram is indicated. This will be done today later in the afternoon. He has been hydrated adequately. Risks discussed secondary to his creatinine elevation. Statin, ASA, metoprolol, nitrates. Status: Acute Code(s): I20.0 - Unstable angina Additional A&P Information Elevated creatinine. May be secondary to chronic kidney disease stage II, or some of the elevation may be secondary to Bactrim he has been taking chronically. Cholelithiasis on CT, liver enzymes normal. US unrevealing although of poor quality HTN Stop Cardizem. Start Metoprolol. Nitrate started as well. Blood pressure much improved. History of hiatal hernia status post surgery Heparin for DVT prophylaxis. Attestations Medical Necessity Statement*: Needs continued hospitalization for definitive evaluation of chest discomfort with angiogram. Coding Level of Care Code Acute Range Operator for Chg Fwd Diagnoses Chronic prostatitis N41.1 Gross hematuria R31.0 BPH w urinary obs/LUTS N40.1; N13.8 Unstable angina I20.0
[2019-05-05] MEDS: diphenhydrAMINE 50 mg Capsule PO (15:37)
--- NOTE | 2019-05-05 17:03 | PM.PN ---
Subjective Subjective: Interval history: Patient underwent coronary angiogram found to have 99% significant mid to distal RCA stenosis treated with balloon angioplasty followed by single drug-eluting stent. Medications: Reviewed: Yes Vitals/I&O/Wt Last Vital Signs Temp 98.0 F 05/05/19 15:26 Pulse 70 05/05/19 15:26 Resp 20 H 05/05/19 15:26 BP 150/90 05/05/19 15:26 Pulse Ox 92 05/05/19 15:26 05/05/19 05/05/19 05/05/19 06:59 14:59 22:59 Intake Total 950 / 2550 1240 / 1240 Balance 950 / 1950 1240 / 1240 Physical Exam Narrative: EXAM NARRATIVE: GENERAL: Patient is alert, awake and oriented x3. NECK: No jugular vein distension. HEENT: No cyanosis. No icterus. No pallor. HEART: Regular S1 and S2. No murmur, rub or gallop. LUNGS: Clear to auscultate bilaterally. ABDOMEN: Soft, nontender and nondistended. Positive bowel sounds. No guarding, rebound or tenderness. CENTRAL NERVOUS SYSTEM: Grossly nonfocal. EXTREMITIES: Lower extremities without edema bilaterally. Data : 05/05/19 03:00 05/05/19 03:00 A&P Assessment and plan (1) Chest pain: Status post PCI to mid to distal RCA for significant 99% stenosis. LAD has mid 50% eccentric and circumflex has ectasia with 40% mid stenosis. We will continue to treat patient with statin beta-magdi aspirin and Plavix. Status: Acute Qualifiers: Chest pain type: precordial pain Qualified Code(s): R07.2 - Precordial pain Code(s): R07.9 - Chest pain, unspecified (2) Acute renal failure (ARF): Continue IV fluid. Most likely patient baseline creatinine is 1.5 we have so far transfused 2 L of normal saline. I have used 118 mL of Visipaque contrast. Continue IV fluid for 10 more hour at 100 mL/h. Please note that patient was discussed in detail regarding contrast-induced nephropathy with 20% chances. He was given adequate IV fluid. Antibiotics and HCTZ was discontinued. Despite of that creatinine remained 1.5. It is therefore thought after discussion with the medicine that this is patient's baseline creatinine. We therefore decided to proceed with coronary angiogram since patient continues to have off-and-on chest pressure Status: Acute Qualifiers: Acute renal failure type: unspecified Qualified Code(s): N17.9 - Acute kidney failure, unspecified Code(s): N17.9 - Acute kidney failure, unspecified (3) Hypertension: Well-controlled. Continue meds Status: Acute Qualifiers: Hypertension type: essential hypertension Qualified Code(s): I10 - Essential (primary) hypertension Code(s): I10 - Essential (primary) hypertension Attestations Medical Necessity Statement*: Post PCI patient requires continuation of admission. Patient also need IV fluid for chronic kidney disease in order to prevent contrast-induced nephropathy. Coding Level of Care Code Established Pt Acute Development Vice President for Chg Fwd Patient Type Established History Expanded Problem Focused Exam Expanded Problem Focused Medical Decision Making Moderate Complexity Diagnoses Chest pain R07.2 Chest pain type: precordial pain Acute renal failure (ARF) N17.9 Acute renal failure type: unspecified Hypertension I10 Hypertension type: essential hypertension
[2019-05-05] MEDS: clopidogrel 300 mg Tablet 600 MG PO (17:52)
--- NOTE | 2019-05-05 19:53 | PC.NURSE ---
called dr desouza in regards to heparin orders post procedures orders received to cancel order
--- NOTE | 2019-05-05 20:10 | PC.NURSE ---
Aggrastat off as ordered. 2cc's of air pulled from TR Band #1. Radial pulse to right wrist present. Will monitor.
[2019-05-05 20:44] LABS: Glucose Point of Care 124 mg/dL (70-110)
[2019-05-05] MEDS: atorvastatin 40 mg Tablet PO (21:00)
--- NOTE | 2019-05-05 23:30 | PC.NURSE ---
TR Band #1 removed with pressure bandage applied. Radial pulse to right wrist intact. No bleeding noted. No increase in previous hematoma. Will monitor.
[2019-05-06] VITALS (29 sets, daily range): BP systolic 108–185; BP diastolic 65–101; PULSE 44–68; RESP 12–22; TEMP 36.7–36.8; O2SAT 89–98
--- NOTE | 2019-05-06 01:00 | PC.NURSE ---
2ml's of air removed from TR band #2. Right radial pulse normal. Skin w/d. Right arm soft to touch. Will monitor.
[2019-05-06] MEDS: sodium chloride 0.9% 1,000 ML 100 ML IV (02:11)
[2019-05-06 03:48] LABS: Basophils % 0.4 %; Eosinophils # 0.4 10^3/uL (0.0-0.8); Eosinophils % 6.7 %; Hemoglobin 11.9 g/dL (11.7-16.6); Lymphocytes # 1.2 10^3/uL (0.8-4.8); Lymphocytes % 20.6 %; Mean Corpuscular HGB Conc 31.3 g/dL (30.0-36.0); Mean Corpuscular Hemoglobin 26.6 pg (28.0-34.0); Mean Corpuscular Volume 84.8 fL (80-94); Mean Platelet Volume 12.1 fL (7.4-10.4); Monocytes # 0.7 10^3/uL (0.2-0.9); Monocytes % 12.9 %; Neutrophils # 3.4 10^3/uL (1.8-7.7); Nucleated Red Blood Cells % 0 %; Platelet Count 136 10^3/cmm (130-400); Red Blood Count 4.48 10^6/uL (4.1-5.3); Red Cell Distribution Width 14.3 % (12.1-15.1); White Blood Count 5.7 10^3/uL (4.0-10.0)
[2019-05-06 04:10] LABS: Anion Gap 11.3 (5-19); Blood Urea Nitrogen 16 mg/dL (8-23); Calcium 9.2 mg/dL (8.5-10.5); Carbon Dioxide 27 mmol/L (22-29); Chloride 104 mmol/L (98-107); Glucose 115 mg/dL (65-115); Osmolality Calculated 283 mOsm/kg (285-295); Potassium 4.3 mmol/L (3.5-5.1); Sodium 138 mmol/L (136-145)
--- NOTE | 2019-05-06 05:15 | PC.NURSE ---
TR band #2 removed. No hematoma or bleeding noted at site. Pressure bandage applied. Will monitor.
--- NOTE | 2019-05-06 06:40 | PC.NURSE ---
Patient requesting that everything be taken off....I think I've been hooked up long enough. Everything unhooked with the exception of heart monitor. Sitting on side of bed drinking coffee. Pressure dressings to right wrist intact with no bleeding noted. Denies pain at this time. Will monitor.
--- NOTE | 2019-05-06 08:10 | P.PN_ITS ---
Subjective Subjective: Interval history: Patient is feeling better. He denies any more chest and jaw pain. He is not short of breath. Creatinine has slightly improved Medications: Reviewed: Yes Vitals/I&O/Wt Last Vital Signs Temp 98.1 F 05/06/19 04:15 Pulse 59 L 05/06/19 07:05 Resp 19 H 05/06/19 07:05 BP 162/88 05/06/19 07:05 Pulse Ox 93 05/06/19 07:05 05/05/19 05/06/19 05/06/19 22:59 06:59 14:59 Intake Total 360 / 1600 1000 / 2600 Balance 360 / 1600 1000 / 2600 Physical Exam Narrative: EXAM NARRATIVE: GENERAL: Patient is alert, awake and oriented x3. NECK: No jugular vein distension. HEENT: No cyanosis. No icterus. No pallor. HEART: Regular S1 and S2. No murmur, rub or gallop. LUNGS: Clear to auscultate bilaterally. ABDOMEN: Soft, nontender and nondistended. Positive bowel sounds. No guarding, rebound or tenderness. CENTRAL NERVOUS SYSTEM: Grossly nonfocal. EXTREMITIES: Lower extremities without edema bilaterally. Data : 05/06/19 03:03 05/06/19 03:03 A&P Assessment and plan (1) Chest pain: Status post PCI to mid to distal RCA with drug-eluting stent ?1. Patient will continue Plavix for at least one year or more if indicated. Continue aspirin statin beta magdi. Follow-up with Roselia Swanson cardiology nurse percussion her in 7 days. Follow-up with my clinic in 6-8 weeks. Status: Acute Qualifiers: Chest pain type: precordial pain Qualified Code(s): R07.2 - Precordial pain Code(s): R07.9 - Chest pain, unspecified (2) Acute renal failure (ARF): Creatinine actually has improved to 1.4. We will discontinue h ydrochlorothiazide as an outpatient. Status: Acute Qualifiers: Acute renal failure type: unspecified Qualified Code(s): N17.9 - Acute kidney failure, unspecified Code(s): N17.9 - Acute kidney failure, unspecified (3) Hypertension: Well-controlled. Continue Current meds Status: Acute Qualifiers: Hypertension type: essential hypertension Qualified Code(s): I10 - Essential (primary) hypertension Code(s): I10 - Essential (primary) hypertension Attestations Medical Necessity Statement*: From a cardiac perspective patient can be discharged Today. Coding Level of Care Code Established Pt Acute Ultimate Hoops Scoreboard Operator for Chg Fwd Patient Type Established History Expanded Problem Focused Exam Expanded Problem Focused Medical Decision Making Moderate Complexity Diagnoses Chest pain R07.2 Chest pain type: precordial pain Acute renal failure (ARF) N17.9 Acute renal failure type: unspecified Hypertension I10 Hypertension type: essential hypertension
--- NOTE | 2019-05-06 10:29 | PM.DCS ---
Discharge Providers Date of Admission: 05/04/19 11:20 Date of Discharge: Date of Discharge: May 06, 2019 Attending Provider at Admission: Nori Prak MD Attending Provider at Discharge: Renaldo Penn Primary Care Provider: Carlitos Castro DO Diagnoses at Discharge Discharge Diagnosis (1) Chest pain: Status: Acute Qualifiers: Chest pain type: precordial pain Qualified Code(s): R07.2 - Precordial pain (2) Acute renal failure (ARF): Status: Acute Qualifiers: Acute renal failure type: unspecified Qualified Code(s): N17.9 - Acute kidney failure, unspecified (3) Hypertension: Status: Acute Qualifiers: Hypertension type: essential hypertension Qualified Code(s): I10 - Essential (primary) hypertension Reason for Visit Reason for Visit: Reason For Visit: throat and chest pain Hospital Course Hospital Course: 73-year-old gentleman with history of hiatal hernia, BPH, chronic prostatitis, breast cancer was admitted after persistent chest discomfort, heaviness, with 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 Due to abnormal creatinine, with unclear baseline, his response to fluid challenge was assessed, with creatinine remaining consistent, he underwent additional risk stratification with coronary angiography and undergone PCI of mid to distal RCA due to 99% stenosis. Also noted mid LAD 50% eccentric and circumflex with 40% mid stenosis. He is doing well after the procedure. Denies any further chest discomfort. Creatinine remained stable. He is cleared to return home by cardiology with follow-up in office. Please continue to optimize risk factors of progression of coronary disease. Discussed with him to avoid Aleve and other NSAIDs. Low fat diet due to cholelithiasis. Physical Exam Const: COMMON NORMALS: no apparent distress and oriented x3 HENMT: COMMON NORMALS: oropharynx normal Neck/C-Spine: COMMON NORMALS: no JVD Resp: COMMON NORMALS: normal respiratory effort and clear to auscultation bilaterally AUSCULTATION: clear to auscultation bilaterally Cardio: COMMON NORMALS: no JVD, regular rhythm, S1 normal heart sound, S2 normal heart sound and no murmurs RHYTHM: regular rhythm HEART SOUNDS: S1 normal and S2 normal GI: COMMON NORMALS: normal to inspection, nondistended, normoactive bowel sounds, soft to palpation and non-tender PALPATION: Yes soft Extremity: COMMON NORMALS: no joint enlargement and no pedal edema OTHER: Ecchymosis over right wrist. No hematoma or palpable pulsatile mass. Neuro: COMMON NORMALS: oriented x3 and moves all extremities Skin: COMMON NORMALS: no rashes or lesions noted GENERAL SKIN EXAM: no rashes or lesions noted Discharge Data Data Completed and Pending: Completed Studies During Hospitalization Category Date Time Status CT angio chest PE protcl [id number] Stat Cat Scan 05/03/19 03:26 Completed Sestamibi Stress Test Request Routi ne Exams 05/03/19 03:26 Completed XR chest 1V mary ble [id number] Stat Exams 05/02/19 23:39 Completed NM delicia perf SPECT r/s* [id number] Routin e Nuc Med 05/03/19 03:26 Completed CV echo complete* [id number] Routine Ultrasound 05/03/19 04:04 Completed US abdomen limite d [id number] Routine Ultrasound 05/03/19 08:57 Completed Pending at discharge Category Date Time Status 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 Routin e Exams 05/05/19 10:20 Taken Labs from last 24 hours 05/06/19 05/06/19 05/05/19 03:03 03:03 20:39 WBC 5.7 RBC 4.48 Hgb 11.9 Hct 38.0 L MCV 84.8 MCH 26.6 L MCHC 31.3 RDW 14.3 Plt Count 136 MPV 12.1 H Neut % (Auto) 59.0 Lymph % (Auto) 20.6 [place] % (Auto) 12.9 Eos % (Auto) 6.7 Baso % (Auto) 0.4 Neut # (Auto) 3.4 Lymph # (Auto) 1.2 [place] # (Auto) 0.7 Eos # (Auto) 0.4 Baso # (Auto) 0.0 Nucleated RBC % (a uto) 0 Nucleated RBCs # 0.0 Sodium 138 Potassium 4.3 Chloride 104 Carbon Dioxide 27 Anion Gap 11.3 BUN 16 Creatinine 1.4 H Glucose 115 POC Glucose 124 Calculated Osmolal ity 283 L Calcium 9.2 Vitals: Last Vital Signs Temp 98.1 F 05/06/19 04:15 Pulse 59 L 05/06/19 07:05 Resp 19 H 05/06/19 07:05 BP 162/88 05/06/19 07:05 Pulse Ox 93 05/06/19 07:05 Discharge Plan Discharge Patient Disposition: Home, Self-Care Condition: Stable Prescriptions: New metoprolol tartrate 25 mg Tablet 25 mg PO BID Qty: 60 RF: 0 amlodipine 5 mg Tablet 5 mg PO DAILY Qty: 30 RF: 0 aspirin [Aspir-81] 81 mg tablet,delayed release (DR/EC) 81 mg PO DAILY Qty: 30 RF: 0 atorvastatin 40 mg Tablet 40 mg PO BEDTIME Qty: 30 RF: 0 clopidogrel 75 mg Tablet 75 mg PO DAILY Qty: 30 RF: 0 Continued finasteride 5 mg tablet 5 mg PO BEDTIME RF: 0 pantoprazole 40 mg tablet,delayed release (DR/EC) 40 mg PO QDAY RF: 0 Changed tamsulosin 0.4 mg capsule 0.4 mg PO BID Qty: 0 RF: 0 Discontinued hydrochlorothiazide 25 mg tablet 25 mg PO QDAY RF: 0 diltiazem HCl 240 mg capsule,extended release 24 hr 240 mg PO DAILY RF: 0 sulfamethoxazole-trimethoprim [Bactrim DS] 800-160 mg tablet 1 tab PO BID Qty: 60 RF: 3 Discharge Orders: Discharge Order (Routine); Ordered 05/06/19 Ordered By: Renaldo Penn Other Ambulatory Orders: Basic Metabolic Panel (Routine) Timeframe: 3 Days Facility: [facility] - Location: Lab - Main Lab Ordered By: Renaldo Penn Referrals: Roselia Swanson FNP [Nurse Practitioner] - 1 week Carlitos Castro DO [Primary Care Provider] - Nori Polanco MD [Physician] - 2 months Discharge Diet: Cardiac, Low Salt and Low Fat Discharge Activity: Limit activity as instructed Activity Restrictions/Additional Instructions: Do not lift over 5 pounds for 3 days. If you experience recurrence of chest pain, shortness of breath, or any other abnormal symptoms please seek medical attention. Please avoid any NSAIDs like Aleve, etc. Discharge Attestations Time Spent in Discharge Care*: greater than 30 min Quality Metrics Clinical Quality Measures During this hospital stay, did patient experience: AMI Clinical Trial Participant: No Contraindication to aspirin (AMI): Aspirin given Contraindication to statin: Statin prescribed Contraindication to PCI: PCI performed Contraindication to Fibrinolytics: Alternative treatment initiated Coding Level of Care Code Acute Electrician Supervisor for Chg Fwd Diagnoses Chest pain R07.2 Chest pain type: precordial pain Acute renal failure (ARF) N17.9 Acute renal failure type: unspecified Hypertension I10 Hypertension type: essential hypertension
[2019-05-06] MEDS: pantoprazole DR 40 mg Tablet PO (12:18)
[2019-05-06] MEDS: amlodipine 5 mg Tablet PO (12:18)
[2019-05-06] MEDS: isosorbide mononitrate ER 30 mg Tablet PO (12:18)
[2019-05-06] MEDS: aspirin 325 mg Tablet PO (12:18)
[2019-05-06] MEDS: finasteride 5 mg Tablet PO (12:19)
[2019-05-06] MEDS: clopidogrel 75 mg Tablet PO (12:19)
[2019-05-06] MEDS: metoprolol tartrate 25 mg Tablet PO (12:19)
[2019-05-06] MEDS: tamsulosin 0.4 mg Capsule PO (12:19)
--- NOTE | 2019-05-06 12:50 | PC.NURSE ---
PATIENT GIVEN DISCHARGE INSTRUCTIONS AND VERBALIZED UNDERSTANDING ; VSS ; IV REMOVED AND PRESSURE DRESSING APPLIED WITH NO BLEEDING NOTED ; PATIENT DENIES ANY PAIN AT THIS TIME ; RIGHT WRIST DRESSING C/D/I ; DISTAL PULSES PRESENT ; PATIENT TO EXIT VIA WHEELCHAIR TO POV WITH NO ISSUES
== END 2019-05-06 12:40 | disposition home or self-care (01) | DRG 247 ==
LOC: ER 23:16 → CSU 05-03 03:17
PROVIDERS: Internal Medicine; Internal Medicine Cardiovascular Disease; Admitting Provider Internal Medicine; Emergency Provider Emergency Medicine; Family Provider Electrodiagnostic Medicine; PCP Electrodiagnostic Medicine; Visit Provider Internal Medicine
DX: I25.110 Atherosclerotic heart disease of native coronary artery with unstable angina pectoris (principal); N17.9 Acute kidney failure, unspecified; R07.2 Precordial pain; N40.1 Benign prostatic hyperplasia with lower urinary tract symptoms; K80.20 Calculus of gallbladder without cholecystitis without obstruction; N41.1 Chronic prostatitis; Z85.3 Personal history of malignant neoplasm of breast; N14.1 Nephropathy induced by other drugs, medicaments and biological substances; T36.8X5A Adverse effect of other systemic antibiotics, initial encounter; I12.9 Hypertensive chronic kidney disease with stage 1 through stage 4 chronic kidney disease, or unspecified chronic kidney disease; N18.2 Chronic kidney disease, stage 2 (mild); Z87.891 Personal history of nicotine dependence
CPT/HCPCS: 12345; 36415; 36416; 71045; 71275; 76705; 78452; 80048; 80053; 80061; 81001; 82550; 82962; 83036; 83880; 84443; 84484; 85025; 85347; 85378; 85610; 85730; 93005; 93017; 93306; 93454; 96372; 96374; 99283; A9500; C1725; C1769; C1874; C1887; C1894; C9600; G0378; J1644; J2001; J2060; J2250; J2785; J3010; J3246; J3490; J7030; Q0163; Q9967

== ENCOUNTER → 2019-05-13 11:26 | Outpatient (BNVA) | payer MEDICARE, OTHER, SELFPAY | PROVIDERS: Family Provider Electrodiagnostic Medicine; PCP Electrodiagnostic Medicine; Visit Provider Internal Medicine Cardiovascular Disease | DX: I25.10 Atherosclerotic heart disease of native coronary artery without angina pectoris (principal); I10 Essential (primary) hypertension; N17.9 Acute kidney failure, unspecified; R07.9 Chest pain, unspecified | CPT/HCPCS: 80048 ==

== ENCOUNTER 2019-06-22 06:46 | Outpatient (CLI) | payer MEDICARE, OTHER, SELFPAY ==
--- NOTE | 2019-06-22 | CT_ITS ---
WS: [id number] CT ABDOMEN PELVIS TECHNIQUE: Noncontrast CT of the abdomen and contrast-enhanced CT of the abdomen and pelvis with west nal and sagittal reformatted images. CLINICAL INFORMATION: GROSS HEMATUYRIA COMPARISON: None. DLP: 5021.[address] scans at [facility] use at least one of these dose optimization techniques: automat ed exposure control; mA and/or kV adjustment per patient size (includes targeted exams where dose is matched to clinical indication); or iterative reconstruction. FINDINGS: Diffuse fatty infiltration of the liver. Pneumobilia. Portal vein and splenic vein are patent. Cholel ithiasis. Splenic granulomas. Small esophageal hiatal hernia. Fatty atrophy of the pancreas. Adrenal glands are normal. Right renal cyst measuring 5.5 cm. Small left renal cyst. Normal bilateral renal parenchymal enhancement. No hydronephrosis. Mild aortic calcification. No hydronephrosis. Both ureters are decompressed. Sigmoid diverticulosis. No evidence of acute diverticulitis. Postoperative changes anterior wall. Nor mal caliber abdominal aorta. Aortic calcification. No periaortic lymphadenopathy. No pelvic or inguin al lymphadenopathy. Normal ureteral excretion on the delayed images. Enlarged prostate with calcification measuring 4.3 x 4.4 x 6.0 CM. Recommend correlation PSA. Mild lumbar curve. No evidence of small or large bowel obst ruction. CT/CT abdomen pelvis wo/w 26360 IMPRESSION: 1. Cholelithiasis. Recommend follow-up with ultrasound. 2. Diffuse fatty infiltration liver with pneumobilia. 3. Postoperative changes at the GE junction with small esophageal hiatal herni a. 4. Right renal cyst measuring 5.5 cm. 5. Normal renal parenchymal enhancement. No hydronephrosis. 6. Calcified enlarged prostate. Recommend correlation PSA. 7. Normal ureteral excretion and bladder filling on the delayed images. Mild b ladder wall thickening likely due to bladder outlet obstruction. 8. Diverticulosis. No evidence of acute diverticulitis.
[2019-06-22] MEDS: iodixanol 320 mg/mL 100mL Btl IV (07:17)
== END 2019-06-22 06:47 | disposition home or self-care (01) ==
LOC: CT 06:47
PROVIDERS: Family Provider Electrodiagnostic Medicine; PCP Electrodiagnostic Medicine; Visit Provider Urology
DX: K80.20 Calculus of gallbladder without cholecystitis without obstruction (principal); R31.0 Gross hematuria; K76.0 Fatty (change of) liver, not elsewhere classified; N28.1 Cyst of kidney, acquired; N40.0 Benign prostatic hyperplasia without lower urinary tract symptoms; K57.30 Diverticulosis of large intestine without perforation or abscess without bleeding
CPT/HCPCS: 74178; 81001

== ENCOUNTER → 2020-03-08 10:18 | Outpatient (BNVA) | payer MEDICARE, OTHER, SELFPAY | PROVIDERS: Family Provider Electrodiagnostic Medicine; PCP Electrodiagnostic Medicine; Visit Provider Urology | DX: N40.1 Benign prostatic hyperplasia with lower urinary tract symptoms (principal); N13.8 Other obstructive and reflux uropathy; N41.1 Chronic prostatitis; R31.0 Gross hematuria | CPT/HCPCS: 81003 ==

== ENCOUNTER 2020-05-17 08:54 | Outpatient (CLI) | payer MEDICARE, SELFPAY ==
[2020-05-17 09:12] VITALS: BMI 31.1
--- NOTE | 2020-05-17 09:12 | ECG_ITS ---
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 Baseline heart rate was 74 beats per minute. Baseline blood pressure was 146/91 millimeters of mercury. Target heart rate was 148 beats per minute. Maximum heart rate achieved was 137, which was 92 % of the target heart rate. Maximum blood pressure was 212/95 millimeters of mercury. Total exercise time was 4 minutes 42 seconds. Maximum METs achieved was 7.0, maximum VO2 was 24.5. The reason for ending the test was maximum effort achieved. The patient complained of shortness of breath during the stress test, which then resolved at the end of the test. ELECTROCARDIOGRAM: BASELINE: Showed sinus rhythm, normal axis, right bundle branch block, no significant ST-T changes at the baseline noted. EXERCISE: At the peak exercise level, no significant ST-T changes suggestive of ischemia noted. RECOVERY: During the recovery period, heart rate dropped appropriately. No significant ST-T changes in the recovery suggestive of ischemia noted. CONCLUSION: 1. Exercise capacity poor. 2. Heart rate response was appropriate. 3. Blood pressure response was hypertensive. 4. Symptoms not suggestive of ischemia. 5. Electrocardiogram portion of the stress test was not suggestive of ischemia. 6. Echocardiogram will be documented separately. Electronically Signed On 05-17-2020 18:46:55 WATER RIGHTS SPECIALIST by NORI POLANCO [email or web address]
--- NOTE | 2020-05-17 09:41 | SUR.PREOP ---
PRE STRESS NOTE Intake assessment revealed that patient is extremely claustrophobic and cannot complete the nuclear scans. Physican notified and verbal orders to change stress modality to Stess Echocardiogram today. Scheduling notified and no issues with pre cert for insurance voiced and dental scheduler states we are okay to proceed with change today. Noted. Patient aware and is okay with the change. Ultrasound aware and is okay to do today aw well.
--- NOTE | 2020-05-17 10:00 | USCV_ITS ---
Stress Echo Sabas Feldman Age: 74 Gender: M : 1945 Exam Date: 05/17/2020 09:21 Ordering Phys: Nori Polanco MD ([email or web address]) Technologist: Fredy Stark Exam Location: [facility] [place] Indication: CHEST pain Rhythm: Sinus Patient History: Chest pain Cardiac Medications: Medications in past 24 hours: Contrast: Stress Results Protocol: Edy Total dose(mL): Exercise Duration (min:sec): 4:43 METS: 7 Resting HR: 81 Resting BP: 143 / 94 Peak HR: 137 Peak BP: 212 / 95 Max Predicted HR: 148 93 % Max Predicted HR Target HR: 126 Double Product: 83414 Stress Summary: The patient's target heart rate was achieved BP Response: Normal Reason for Termination: Test terminated after reaching target heart rate (85% max predicted) Cardiac Symptoms: None ECG Analysis Resting ECG: Stress ECG: Arrhythmia: MEASUREMENTS (Male/Female) Normal Values FINDINGS Baseline: Normal left ventricle size and ejection fraction. Estimated ejection fraction 60%. Mild anterior wall hypokinesis Peak exercise: Good augmentation of left ventricle cavity without significant new wall motion abnormality Recovery: No new wall motion abnormality noted during recovery. CONCLUSIONS Echocardiographic portion of the study is negative for ischemia and low probability for obstructive coronary artery disease. Nori Polanco MD (Electronically Signed) Final Date: 17 May 2020 18:38 S
[2020-05-17 10:38] VITALS: BP 152/84; PULSE 71
== END 2020-05-17 08:55 | disposition home or self-care (01) ==
PROVIDERS: PCP Electrodiagnostic Medicine; Visit Provider Internal Medicine Cardiovascular Disease
DX: R06.02 Shortness of breath (principal); R07.9 Chest pain, unspecified
CPT/HCPCS: 93017; 93350

== ENCOUNTER → 2021-04-17 08:09 | Outpatient (BNVA) | payer MEDICARE, OTHER, SELFPAY | PROVIDERS: PCP Electrodiagnostic Medicine; Visit Provider Urology | DX: Z12.5 Encounter for screening for malignant neoplasm of prostate (principal); N40.1 Benign prostatic hyperplasia with lower urinary tract symptoms; N13.8 Other obstructive and reflux uropathy; I25.10 Atherosclerotic heart disease of native coronary artery without angina pectoris; N41.1 Chronic prostatitis; R31.0 Gross hematuria | CPT/HCPCS: 81003; G0103 ==

== ENCOUNTER 2022-11-04 11:00 | Outpatient (CLI) | payer OTHER, SELFPAY | END 2022-11-04 11:01 | disposition home or self-care (01) | LOC: SLEEP 11-05 14:47 | PROVIDERS: PCP Electrodiagnostic Medicine; Visit Provider Electrodiagnostic Medicine | DX: G47.10 Hypersomnia, unspecified (principal); G47.33 Obstructive sleep apnea (adult) (pediatric); G47.36 Sleep related hypoventilation in conditions classified elsewhere | CPT/HCPCS: G0399 ==